=== PATIENT | male | born 1960 | race Native Hawaiian/Other Pacific Islander ===

== ENCOUNTER 2020-08-15 06:28 | Outpatient (CLI) | payer OTHER ==
[2020-08-15 13:39] LABS: Hemoglobin 13.9 g/dL (14.0-18.0); Mean Corpuscular Hemoglobin 36.2 PG (27.0-33.0); Mean Corpuscular Volume 100.5 fl (80.0-100.0); Mean Platelet Volume 9.1 fl (7.4-10.4); Platelet Count 290 10x3/uL (130-400); RBC Distribution Width 12.9 % (11.5-14.5); Red Blood Cell (RBC) Count 3.84 10x6/uL (4.40-5.80); White Blood Cell (WBC) Count 8.5 10x3/uL (4.5-11.0)
[2020-08-15 14:05] LABS: Anion Gap 17 mmol/L (10-20); BUN (Urea Nitrogen) 20 mg/dL (8.4-25.7); Calc. Creatinine Clearance 0 mL/min (70-130); Calcium 9.3 mg/dL (7.8-10.44); Carbon Dioxide 26 mmol/L (22-29); Chloride 101 mmol/L (98-107); Estimated GFR-MDRD 77; Glucose 110 mg/dL (70-105); Potassium 4.2 mmol/L (3.5-5.1); Sodium 140 mmol/L (136-145)
[2020-08-16 20:28] LABS: SARS-CoV-2 MS2 Positive; SARS-CoV-2 N Gene Negative; SARS-CoV-2 S Gene Negative; SARS-CoV-2 by NAA Not Detected (NotDetected); SARS-CoV-2 orf1ab Negative
--- NOTE | 2020-08-19 06:57 | EKG ---
Test Reason : Blood Pressure : / mmHG Vent. Rate : 071 BPM Atrial Rate : 071 BPM P-R Int : 184 ms QRS Dur : 076 ms QT Int : 400 ms P-R-T Axes : 029 006 018 degrees QTc Int : 434 ms Normal sinus rhythm Normal ECG No previous ECGs available Confirmed by ABELARDO MILLER MD ([id number]) on 08/19/2020 6:57:27 AM Referred By: ROMEO Confirmed By:ABELARDO MILLER MD
== END 2020-08-15 06:29 | disposition home or self-care (01) ==
LOC: LABBT 06:28
PROVIDERS: ATTEND Neurological Surgery
DX: Z01.818 Encounter for other preprocedural examination (principal); M54.16 Radiculopathy, lumbar region; Z20.828 Contact with and (suspected) exposure to other viral communicable diseases
CPT/HCPCS: 80048; 85027; 87635; 93005; 93010; U0003

== ENCOUNTER 2020-08-20 08:47 | Day surgery (SDC) | payer OTHER ==
[2020-08-19 08:53] VITALS: BMI 37.8
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
[2020-08-20] MEDS ORDERED: Morphine 4 MG/ML VIAL ONE (09:10)
[2020-08-20] MEDS ORDERED: Midazolam HCl 2 mg/2 ml Vial ONE (09:31)
[2020-08-20] MEDS ORDERED: Thrombin 5000 UNITS/5 ML VIAL ONE (09:43)
[2020-08-20] MEDS ORDERED: EPINEPHrine 1 MG/ML AMP ONE (09:43)
[2020-08-20] MEDS ORDERED: Bupivacaine PF 0.5% 30 ML VIAL ONE (09:43)
[2020-08-20] MEDS ORDERED: Fentanyl 250 MCG/5 ML VIAL ONE (09:51)
[2020-08-20] MEDS ORDERED: Dexamethasone 20 MG/5 ML VIAL ONE (11:38)
[2020-08-20] MEDS ORDERED: Ketorolac Tromethamine 30 MG/ML VIAL ONE (11:38)
[2020-08-20] MEDS ORDERED: Ondansetron PF 4 MG/2 ML Vial ONE (11:38)
[2020-08-20] MEDS ORDERED: Rocuronium Bromide 10 MG/ML (10ML VIAL) ONE (11:38)
[2020-08-20] MEDS ORDERED: Lidocaine 1% PF 5 ML VIAL ONE (11:38)
[2020-08-20] MEDS ORDERED: PROPOFOL 200 MG/20 ML VIAL ONE (11:38)
[2020-08-20] MEDS ORDERED: Promethazine HCl 25 MG/ML VIAL SLOW IVP PRN (12:16)
[2020-08-20] MEDS ORDERED: Promethazine HCl 25 MG/ML VIAL IM PRN (12:16)
[2020-08-20] MEDS ORDERED: HYDROmorphone 2 MG/ML VIAL SLOW IVP PRN (12:16)
[2020-08-20] MEDS ORDERED: Ondansetron HCl/PF 4 MG/2 ML Vial IVP PRN (12:16)
--- NOTE | 2020-08-20 12:39 | OP ---
DATE OF PROCEDURE: 08/20/2020 QUALITY CONTROL REPRESENTATIVE: Michael Augustin PA-C INDICATION: Pain. DIAGNOSIS: L5-S1 spondylolisthesis. PROCEDURE PERFORMED: L5-S1 fusion. ANESTHESIA: General. DESCRIPTION OF PROCEDURE: The patient was brought into the operating room and placed under general anesthesia. He was flipped from the supine to prone position on the operating room table. A linear incision was planned over the L5-S1 segment. After prepping and draping and after an appropriate preoperative pause, the incision was created. The soft tissues were swept away from midline. Self-retaining retractors were placed in the wound for optimal exposure. After confirming the appropriate levels with C-arm fluoroscopy, facetectomies were performed bilaterally at L5-S1. Pedicle screws were placed at the right L5 and S1 pedicles. I attempted to place a pedicle at the left L5 pedicle, but the pedicle chipped off and I did not feel it was safe to continue with placement of pedicle in that area or on that side. An intraoperative 3D CT scan was performed, which confirmed excellent placement of hardware. Allograft and autograft were placed laterally and bilaterally. The wound was irrigated. Hemostasis was maintained throughout. The wound was then closed in anatomic layers, and a pressure dressing was applied. There were no known procedural complications. Job ID: [id number]
[2020-08-20] MEDS ORDERED: Fentanyl 100 MCG/2 ML VIAL ONE ×2 (13:16→13:35)
[2020-08-20] MEDS ORDERED: Tamsulosin HCl 0.4 MG CAP ONE (13:22)
[2020-08-20] MEDS ORDERED: Cyclobenzaprine 10 MG TAB ONE (13:48)
[2020-08-20] MEDS ORDERED: HYDROcodone/Acetaminophen 5/325 mg Tablet ONE (15:33)
== END 2020-08-20 15:45 | disposition home or self-care (01) ==
LOC: SDC 08:47
PROVIDERS: ATTEND Neurological Surgery
PROC: 0SG3071 Fusion of Lumbosacral Joint with Autologous Tissue Substitute, Posterior Approach, Posterior Column, Open Approach (ICD-10-PCS; principal; 2020-08-20)
DX: M43.17 Spondylolisthesis, lumbosacral region (principal); M47.26 Other spondylosis with radiculopathy, lumbar region; E78.00 Pure hypercholesterolemia, unspecified; G89.4 Chronic pain syndrome; F32.9 Major depressive disorder, single episode, unspecified; J45.909 Unspecified asthma, uncomplicated; F41.9 Anxiety disorder, unspecified; M19.90 Unspecified osteoarthritis, unspecified site; G43.909 Migraine, unspecified, not intractable, without status migrainosus; I10 Essential (primary) hypertension; M81.0 Age-related osteoporosis without current pathological fracture; I25.2 Old myocardial infarction; F17.200 Nicotine dependence, unspecified, uncomplicated; E78.5 Hyperlipidemia, unspecified; G47.30 Sleep apnea, unspecified; Z79.82 Long term (current) use of aspirin; Z79.899 Other long term (current) drug therapy; Z95.5 Presence of coronary angioplasty implant and graft
CPT/HCPCS: 76000; C1713; C1768; J0171; J0690; J1100; J1885; J2250; J2270; J2405; J2704; J3010; S0020